=== PATIENT | female | born 1940 | race Hispanic/Latino ===

== ENCOUNTER → 2017-10-01 | Outpatient (CLI) | payer MEDICARE ==
[~2017-10-01] MED LIST: BENZ-17 PO; CALC-190 PO; DIPH25 PO; MULT-1250 PO; PANT40TA25 PO; SIMV40TA59 PO; TRIA10.8 NS
== END | disposition home or self-care (01) ==
LOC: RAH 09:38
PROVIDERS: ATTEND Family Medicine
DX: Z12.31 Encounter for screening mammogram for malignant neoplasm of breast (principal); I25.10 Atherosclerotic heart disease of native coronary artery without angina pectoris; I11.0 Hypertensive heart disease with heart failure; E11.9 Type 2 diabetes mellitus without complications; E78.5 Hyperlipidemia, unspecified; I48.0 Paroxysmal atrial fibrillation; K21.9 Gastro-esophageal reflux disease without esophagitis
CPT/HCPCS: 77067

== ENCOUNTER → 2018-10-19 | Outpatient (CLI) | payer MEDICARE | END | disposition home or self-care (01) | LOC: RAH 10:02 | PROVIDERS: ATTEND Family Medicine | DX: Z12.31 Encounter for screening mammogram for malignant neoplasm of breast (principal) | CPT/HCPCS: 77067 ==

== ENCOUNTER → 2022-12-13 | Outpatient (CLI) | payer MEDICARE ==
[~2022-12-13] MED LIST changes: +DIPH-1242 PO; -DIPH25 PO; -PANT40TA25 PO; +PANT40TA55 PO
== END | disposition home or self-care (01) ==
LOC: RAH 08:39
PROVIDERS: ATTEND Internal Medicine Gastroenterology
DX: K21.9 Gastro-esophageal reflux disease without esophagitis (principal); K44.9 Diaphragmatic hernia without obstruction or gangrene; K21.00 Gastro-esophageal reflux disease with esophagitis, without bleeding
CPT/HCPCS: 74240

== ENCOUNTER → 2025-01-21 | Outpatient (CLI) | payer MEDICARE ==
[~2025-01-21] MED LIST changes: +IOHEXOL-350 75 ML VIAL IV ONE
--- NOTE | 2025-01-21 13:13 | HMCIMG ---
The urinary with the recent and preliminary ultrasound which revealed a Faith CT ABDOMEN/PELVIS W/WO CONTRAS REASON: LOWER ABDOMINAL PAIN COMPARISON: None. FINDINGS: The study was obtained with and without intravenous contrast with 75 cc of Omnipaque 350 was given for intravenous contrast. The study was also obtained with oral contrast. Lung bases are clear. There is coronary calcification suggesting of coronary artery disease.. There are no focal liver lesions. There are normal-appearing kidneys.. Spleen and pancreas appear unremarkable. The gallbladder appears normal as well. Bowel loops appear unremarkable. This includes normal appearance of the appendix There is no evidence of free fluid or intraperitoneal air. There are no focal fluid collections. Aorta and retroperitoneum appear normal as do pelvic soft tissue structures. The anterior abdominal wall is intact. Osseous structures appear unremarkable. The CASEWORK MANAGER structures appears within normal. There is no mass or free fluid within the pelvis. IMPRESSION: 1. No acute process seen at CT of abdomen and pelvis with and without intravenous contrast and oral contrast. CT was performed with one or more following dose reduction techniques: automated exposure control, adjustment of the mA and kv according to patient's size, or use of a iterative reconstruction technique.
== END | disposition home or self-care (01) ==
LOC: RAH 08:42
PROVIDERS: ATTEND Internal Medicine Gastroenterology
DX: R10.30 Lower abdominal pain, unspecified (principal)
CPT/HCPCS: 74178; Q9967

== ENCOUNTER 2025-03-25 15:44 | Emergency (ER) | payer MEDICARE ==
[~2025-03-25] VITALS: Ht 152.4 cm; Wt 60.8 kg
[~2025-03-25 15:44] MED LIST changes: -ACET-66 PO; -IOHEXOL-350 50ML VIAL IV ONE; -IOHEXOL-350 75 ML VIAL IV ONE
--- NOTE | 2025-03-25 16:23 | ERN ---
ED Note History of Present Illness Stated Complaint: FALL Chief Complaint: Mechanical Fall Time Seen by MD: 15:48 Time Seen by Midlevel: 15:50 Dictation: PATIENT IS A 84-YEAR-OLD FEMALE THAT IS HERE WITH COMPLAINTS OF GOING TO RADIOLOGY FOR AN X-RAY THAT WAS ORDERED BY HER DOCTOR. WHEN SHE WAS BEING ESCORTED BACK TO THE WAITING ROOM SHE HAD A SLIP FALL LANDED ON HER LEFT SHOUL LYNETTE AND HER RIGHT KNEE. SHE IS ALSO COMPLAINING OF POSTERIOR CERVICAL PAIN. THERE IS NO MIDLINE SPINE PAIN SHE IS MOVING ALL EXTREMITIES. NEUROVASCULAR CMS INTACT ALL FOUR EXTREMITIES. SHE DID NOT HIT HER HEAD NO BLOOD THINNERS NO TRAUMA ALERT CRITERIA. Allergies: Coded Allergies: No Known Drug Allergies (Verified Allergy, Unknown, 12/11/15) Home Meds Active Scripts Benzonatate (Tessalon Perle) 100 Mg Capsule, 100 MG PO TID, #60 CAP Prov:CRUZ MITCHELL Jr., MD 12/18/15 Reported Medications Diphenhydramine HCl (Benadryl) 25 Mg Cap, 25 MG PO DAILY PRN for ITCHING, CAP 12/11/15 Triamcinolone Acetonide (Nasacort) 10.8 Ml [place], 10.8 ML NS DAILY, SPRAY 12/11/15 Multivits-Min/Iron/FA/Lutein (Centrum Silver Women Tablet) 1 Each Tablet, 1 EACH PO DAILY, TAB 12/11/15 Calcium Carbonate/Vitamin D3 (Calcium + Vitamin D Tablet) 1 Each Tablet, 1 EACH PO BIDMEALS, TAB 12/11/15 Pantoprazole Sodium (Protonix) 40 Mg Ectab, 40 MG PO HS, TAB.EC 12/11/15 Simvastatin (ZOCOR) 40 Mg Tablet, 40 MG PO HS, TAB 12/11/15 Past Medical History Past Medical History: GERD, High Cholesterol Surgical History: None History: Not Applicable RN Note Reviewed/Agreed w/PFSH: Yes Review of System Dictation CONSTITUTIONAL: NEGATIVE EXCEPT FOR HPI HEAD/FACE: NEGATIVE EXCEPT FOR HPI EENT: NEGATIVE EXCEPT FOR HPI RESPIRATORY: NEGATIVE EXCEPT FOR HPI GASTROINTESTINAL/ABDOMINAL: NEGATIVE EXCEPT FOR HPI GENITOURINARY: NEGATIVE EXCEPT FOR HPI MUSCULOSKELETAL: NEGATIVE EXCEPT FOR HPI RIGHT KNEE/POSTERIOR NECK/POSTERIOR LEFT SHOULDER PAIN INTEGUMENTARY: NEGATIVE EXCEPT FOR HPI NEUROLOGICAL/PSYCH: NEGATIVE EXCEPT FOR HPI HEMATOLOGIC/LYMPHATIC: NEGATIVE EXCEPT FOR HPI ALL SYSTEMS NEGATIVE, EXCEPT NOTED ABOVE. 13 POINT REVIEW OF SYSTEMS ASSESSED AND ALL NEGATIVE EXCEPT FOR ABOVE. Initial Vital Sign VS Vital Signs Date Time Temp Pulse Resp B/P (MAP) Pulse Ox O2 Delivery O2 Flow Rate FiO2 03/25/25 15:48 98.6 67 18 158/62 99 Physical Exam Dictation VITAL SIGNS REVIEWED GENERAL APPEARANCE: ALERT, ORIENTED X 3, MILD ACUTE DISTRESS, WELL DEVELOPED, NOURISHED. HEAD AND FACE: NON-TRAUMATIC. EYES: PERRL, PINK CONJUNCTIVAS, EYELID NO TRAUMA, ANTERIOR CHAMBER WITH ARCUS SENILIS. EARS: PINNAS INTACT AND NO SIGNS OF TRAUMA OR ERYTHEMA EAR CANALS CLEAR AND NO D ISCHARGE TM NO ERYTHEMA NOSE: NO DISCHARGE, NO BLEEDING. OROPHARYNX: MOUTH NORMAL, TONGUE PINK, PHARYNX CLEAR,NO ERYTHEMA, TONSILS NO EXUDATES, NO ABSCESSES NOTED, MUCOUS MEMBRANE MOIST NECK: SUPPLE, DIFFUSE POSTERIOR TENDERNESS, NO THYROMEGALY, NO MASSES, NO JVD, NO BRUITS NO MIDLINE SPINE PAIN BREAST:DEFERRED CHEST:NO TENDERNESS, NO CREPITUS, NO PARADOXICAL MOVEMENT, NO RETRACTIONS LUNGS:CLEAR, WELL-VENTILATED, SYMMETRIC, NO RALES, NO WHEEZING, NO RHONCHI, NO STRIDOR, GOOD BREATH SOUNDS BILATERALLY HEART: REGULAR RATE, REGULAR RHYTHM, NO MURMUR, NO GALLOPS VASCULAR: NO PERIPHERAL EDEMA, ABDOMEN: SOFT, POSITIVE BOWEL SOUNDS, NONDISTENDED, NO GUARDING, NONTENDER, NO REBOUND, NO MASSES NO HEPATOMEGALY, NO SPLENOMEGALY, NO NGO'S SIGN, NO HERNIAS. RECTAL: DEFERRED GENITAL: DEFERRED NEUROLOGICAL: NORMAL SPEECH, MOTOR FUNCTION INTACT, SENSORY FUNCTION INTACT MUSCULOSKELETAL: POSTERIOR NECK METER MECHANIC THROUGHOUT. NO MIDLINE SPINE PAIN NO STEP-OFF POSTERIOR LEFT SHOULDER RIGHT ANTERIOR KNEE TENDERNESS. FULL RANGE OF MOTION TO BOTH EXTREMITIES EXTREMITIES: NONTENDER, FULL RANGE OF MOTION SKIN: COLOR PINK, DRY, NO TURGOR, NO RASH, NO LACERATIONS, NO ABRASIONS, NO CONTUSIONS. LYMPHATIC: DEFERRED Results (Laboratory/Radiology) Laboratory/Radiology EXAM: CR left Shoulder, 2 View. CLINICAL HISTORY: LEFT POSTERIOR SHOULDER PAIN STATUS POST FALL COMPARISON: None provided. FINDINGS: BONES: No acute fracture or aggressive appearing osseous lesion. JOINTS: No dislocation. The joint spaces are normal. SOFT TISSUES: The soft tissues are unremarkable. IMPRESSION: No acute abnormality evident on examination of the left shoulder. No acute fracture or dislocation. /[place] EXAM: CR right Knee, 3 View. CLINICAL HISTORY: RIGHT KNEE PAIN STATUS POST FALL COMPARISON: None provided. FINDINGS: BONES: No acute fracture or aggressive appearing osseous lesion. JOINTS: Mild tricompartmental degenerative change SOFT TISSUES: The soft tissues are unremarkable. IMPRESSION: Mild tricompartmental degenerative change /[place] COMPARISON: None provided. FINDINGS: BONES: No acute displaced fracture or aggressive appearing osseous lesion. The bony structures appear demineralized. DISCS/DEGENERATIVE CHANGES: Grade 1 anterio-listhesis of the C4 over the C5 vertebral body. Mild grade 1 anterio-listhesis of the C7 over T1. Degenerative disc disease changes C5-C7. Facet arthrosis. SOFT TISSUES: No prevertebral soft tissue swelling. The visualized lung apices are clear. Bilateral probable carotid calcific atherosclerosis. IMPRESSION: 1. No acute displaced fracture. Osseous demineralization. An acute non-displaced fracture not excluded. Recommend CT Cspine for further evaluation. 2. Grade 1 anterolisthesis of C4 over C5. 3. Degenerative disc disease at C5-C7. 4. Facet arthrosis. 5. Osteopenia. 6. Bilateral probable carotid calcific atherosclerosis. /[place] Labs Reviewed?: Yes ED Course ED Course Orders Procedure Category Date Status Time Cerv Spine 2-3vws RAD 03/25/25 Taken 15:49 Shoulder Comp 2+Vws Lt RAD 03/25/25 Resulted 15:49 Knee 3vws Rt RAD 03/25/25 Resulted 15:49 Acetaminophen 500mg PHA 03/25/25 Complete Tab (Tylenol 500mg T 16:00 Current Medications Medications (Trade) Dose Ordered Sig/Ritesh Route PRN Reason Start Time Stop Time Status Last Admin Dose Admin Acetaminophen (TYLenol 500MG TAB) 1,000 mg ONCE ONCE PO 03/25/25 16:00 03/25/25 16:01 DC Vital Signs Date Time Temp Pulse Resp B/P (MAP) Pulse Ox O2 Delivery O2 Flow Rate FiO2 03/25/25 15:48 98.6 67 18 158/62 99 1700/NEUROVASCULAR CMS INTACT TO ALL EXTREMITIES. PATIENT HAS A ARTHRITIC CHANGES TO THE CERVICAL NECK WITHOUT FRACTURE. RIGHT KNEE AND LEFT SHOULDER NEGATIVE Medical Decision Making MDM MEDICAL DECISION-MAKING BASED ON X-RAYS OF CERVICAL SPINE, LEFT SHOULDER AND RIGHT KNEE. DIAGNOSIS IS RIGHT KNEE CONTUSION, LEFT SHOULDER CONTUSION AND CERVICAL SPRAIN. PATIENT WILL BE DISCHARGED HOME NEUROVASCULAR CMS INTACT TO ALL EXTREMITIES. PAIN CONTROLLED DX & DISP Disposition: Discharge Departure Impression: Primary Impression: Contusion of left shoulder, initial encounter Additional Impressions: Acute cervical myofascial strain, Contusion of right knee, initial encounter, DJD (degenerative joint disease) of cervical spine, Fall Condition: Stable Scripts Acetaminophen (Tylenol) 500 Mg Tab 2 TAB PO Q6HPRN PRN for pain or fever, #60 TAB 0 Refills Prov: VERA AVILA NP 03/25/25 Additional Instructions: FOLLOW-UP WITH PRIMARY CARE PROVIDER IN 1 TO 2 DAYS. TAKE MEDICATIONS DIRECTED HERE IN THE EMERGENCY ROOM. OKAY TO CONTINUE HOME MEDICATIONS UNLESS OTHERWISE DISCUSSED DURING YOUR VISIT IN THE EMERGENCY ROOM TODAY. RETURN TO YOUR NEAREST EMERGENCY ROOM IF SYMPTOMS WORSEN OR IF THERE IS NO IMPROVEMENT. CALL 911 IF YOU NEED IMMEDIATE ASSISTANCE. TAKE TYLENOL OR MOTRIN [id number] NEEDED AND IF NO CONTRAINDICATIONS ARE PRESENT. INCREASE ORAL HYDRATION. A WOUND CULTURE OR URINE CULTURE WAS ORDERED HERE IN THE EMERGENCY ROOM DEPARTMENT PLEASE FOLLOW-UP WITH PRIMARY CARE PROVIDER AND ADVISE THEM TO GET REPEAT PORTS FROM OUR FACILITY. IF YOU HAD ANY CHRISTIANO WRAP/SPLINTS THAT WERE APPLIED HERE, PLEASE DO NOT REMOVE THEM UNTIL YOU SEE YOUR PRIMARY CARE OR SPECIALTY. TAKE TYLENOL TWO TABLETS EVERY 6 HOURS NEEDED FOR PAIN. COOL COMPRESSES TO PAIN THREE TO 4 TIMES A DAY AND SEE YOUR PRIMARY CARE DOCTOR FOR FOLLOW UP. Referrals: CRUZ MITCHELL Jr., MD (PCP) Time of Disposition: 17:06 I have reviewed the case, and I agree with, Diagnosis and Plan VERA AVILA NP Mar 25, 2025 16:23
--- NOTE | 2025-03-25 16:35 | HMCIMG ---
EXAM: CR left Shoulder, 2 View. CLINICAL HISTORY: LEFT POSTERIOR SHOULDER PAIN STATUS POST FALL COMPARISON: None provided. FINDINGS: BONES: No acute fracture or aggressive appearing osseous lesion. JOINTS: No dislocation. The joint spaces are normal. SOFT TISSUES: The soft tissues are unremarkable. IMPRESSION: No acute abnormality evident on examination of the left shoulder. No acute fracture or dislocation. /[place]
--- NOTE | 2025-03-25 16:36 | HMCIMG ---
EXAM: CR right Knee, 3 View. CLINICAL HISTORY: RIGHT KNEE PAIN STATUS POST FALL COMPARISON: None provided. FINDINGS: BONES: No acute fracture or aggressive appearing osseous lesion. JOINTS: Mild tricompartmental degenerative change SOFT TISSUES: The soft tissues are unremarkable. IMPRESSION: Mild tricompartmental degenerative change /[place]
--- NOTE | 2025-03-25 17:00 | HMCIMG ---
EXAM: CR Cervical spine, 3 View. CLINICAL HISTORY: DIFFUSE CERVICAL PAIN STATUS POST FALL COMPARISON: None provided. FINDINGS: BONES: No acute displaced fracture or aggressive appearing osseous lesion. The bony structures appear demineralized. DISCS/DEGENERATIVE CHANGES: Grade 1 anterio-listhesis of the C4 over the C5 vertebral body. Mild grade 1 anterio-listhesis of the C7 over T1. Degenerative disc disease changes C5-C7. Facet arthrosis. SOFT TISSUES: No prevertebral soft tissue swelling. The visualized lung apices are clear. Bilateral probable carotid calcific atherosclerosis. IMPRESSION: 1. No acute displaced fracture. Osseous demineralization. An acute non-displaced fracture not excluded. Recommend CT Cspine for further evaluation. 2. Grade 1 anterolisthesis of C4 over C5. 3. Degenerative disc disease at C5-C7. 4. Facet arthrosis. 5. Osteopenia. 6. Bilateral probable carotid calcific atherosclerosis. /[place]
[2025-03-25] MEDS ORDERED: ACET-66 PO (17:08)
[2025-03-25 17:51] VITALS: BP 137/68; PULSE 62; RESP 18; TEMP 98.6; O2SAT 99
== END 2025-03-25 17:55 | disposition home or self-care (01) ==
LOC: EDH 15:44
DX: S16.1XXA Strain of muscle, fascia and tendon at neck level, initial encounter (principal); S40.012A Contusion of left shoulder, initial encounter; S80.01XA Contusion of right knee, initial encounter; M47.812 Spondylosis without myelopathy or radiculopathy, cervical region; E78.00 Pure hypercholesterolemia, unspecified; W01.0XXA Fall on same level from slipping, tripping and stumbling without subsequent striking against object, initial encounter; Y93.89 Activity, other specified; Y92.89 Other specified places as the place of occurrence of the external cause; Y99.8 Other external cause status
CPT/HCPCS: 71260; 72040; 73030; 73562; 99284; Q9967

== ENCOUNTER → 2025-03-25 | Outpatient (CLI) | payer MEDICARE ==
[~2025-03-25] MED LIST changes: +ACET-66 PO; +IOHEXOL-350 50ML VIAL IV ONE
--- NOTE | 2025-03-26 10:47 | HMCIMG ---
CT CHEST W/CONTRAST REASON: Dyspnea, unspecified COMPARISON: Prior study from 12/13/2015 is available. TECHNIQUE: Multiple sequential axial images of the chest were obtained from the thoracic inlet through the upper pole of the kidneys without intravenous contrast administration. FINDINGS: Heart size is within upper limits of normal. There is coronary calcification suggesting of coronary artery disease. No mediastinal or axillary lymphadenopathy identified. There is no pleural or pericardial effusion. Lungs are clear. There is hyperaeration of lungs suggesting of chronic obstructive pulmonary disease.. There is no consolidation or pneumothorax. Trachea and main bronchi are unremarkable. No chest wall abnormality identified. There is moderate hiatal hernia. The remaining upper abdomen demonstrate no acute process. IMPRESSION: No acute process seen a CT of the chest without intravenous contrast.. Coronary calcifications suggesting coronary artery disease. Small to moderate hiatal hernia. CT was performed with one or more following dose reduction techniques: automated exposure control, adjustment of the mA and kv according to patient's size, or use of a iterative reconstruction technique.
== END | disposition home or self-care (01) ==
LOC: RAH 14:01
PROVIDERS: ATTEND Internal Medicine Cardiovascular Disease
DX: J98.4 Other disorders of lung (principal); R06.00 Dyspnea, unspecified; K44.9 Diaphragmatic hernia without obstruction or gangrene
CPT/HCPCS: 71260; Q9967

== ENCOUNTER 2025-04-27 04:56 | Emergency (ER) | payer MEDICARE ==
[~2025-04-27] VITALS: Ht 157.5 cm; Wt 60.3 kg
[~2025-04-27 04:56] MED LIST changes: +ACET-66 PO
[2025-04-27 05:10] VITALS: TEMP 97.3
[2025-04-27 05:24] LABS: IMMATURE GRANULOCYTE ABSOLUTE 0.05 K/uL (0-1); NUCLEATED RED BLOOD CELLS 0.0 % (0.0-0.19); PLATELET COUNT (AUTO) 156 K/uL (130-400); RED BLOOD CELL COUNT(AUTO) 4.76 MIL/uL (4.00-5.50); RED CELL DISTRIBUTION WIDTH 15.1 % (11.0-15.5); WHITE BLOOD COUNT (AUTO) 8.2 K/uL (4.8-10.8)
[2025-04-27 05:31] LABS: CREATININE 0.7 mg/dL (0.5-1.0); GLOMERULAR FILTR. RATE CALC 85.0 mL/min (>90); GLUCOSE,RANDOM 93.0 mg/dL (70-105); SODIUM SERUM 140.0 mmol/L (136-145); UREA NITROGEN, BLOOD 15.0 mg/dL (7-18)
[2025-04-27] MEDS: LACTATED RINGERS 1000ML 1,000 ML IV ONE (05:31)
[2025-04-27 05:39] LABS: CREATINE KINASE, TOTAL 93.0 U/L (21-232)
[2025-04-27 05:41] LABS: APPEARANCE,URINE CLEAR (CLEAR); GLUCOSE, URINE (UA) NEGATIVE (NEGATIVE); LEUKOCYTE ESTERASE ,URINE 500 Leu/uL (NEGATIVE); NITRATE,URINE NEGATIVE (NEGATIVE); OCCULT BLOOD,URINE +- (TRACE) (NEGATIVE)
--- NOTE | 2025-04-27 05:41 | ERN ---
General Chief Complaint: Mechanical Fall Stated Complaint: C/O SYNCOPAL EPISODE, FALL Time Seen by MD: 05:07 History of Present Illness Initial Comments 84F BIB family from home for fall this morning. Patient reports that she was washing her face in the restroom. She turned around and reportedly lost her balance, falling to the floor. She hit the back of her head on the floor. She denies LOC. No repetitive questioning, no vomiting. Patient reports pain to the back of the head, and neck pain. No other complaints. According to the patient and family, the patient has had multiple falls over the past few months. She reports that she gets episodes where she loses her balance and is unable to catch herself. She had a CT scan of the brain within the past couple of months which was unremarkable. Allergies: Coded Allergies: No Known Drug Allergies (Verified Allergy, Unknown, 12/11/15) Home Meds Active Scripts Acetaminophen (Tylenol) 500 Mg Tab, 2 TAB PO Q6HPRN PRN for pain or fever, #60 TAB 0 Refills Prov:VERA AVILA KEYMODULE ASSEMBLY MACHINE TENDER 03/25/25 Benzonatate (Tessalon Perle) 100 Mg Capsule, 100 MG PO TID, #60 CAP Prov:CRUZ MITCHELL Jr., MD 12/18/15 Reported Medications Diphenhydramine HCl (Benadryl) 25 Mg Cap, 25 MG PO DAILY PRN for ITCHING, CAP 12/11/15 Triamcinolone Acetonide (Nasacort) 10.8 Ml [place], 10.8 ML NS DAILY, SPRAY 12/11/15 Multivits-Min/Iron/FA/Lutein (Centrum Silver Women Tablet) 1 Each Tablet, 1 EACH PO DAILY, TAB 12/11/15 Calcium Carbonate/Vitamin D3 (Calcium + Vitamin D Tablet) 1 Each Tablet, 1 EACH PO BIDMEALS, TAB 12/11/15 Pantoprazole Sodium (Protonix) 40 Mg Ectab, 40 MG PO HS, TAB.EC 12/11/15 Simvastatin (ZOCOR) 40 Mg Tablet, 40 MG PO HS, TAB 12/11/15 Past Medical History Past Medical History: Unknown Past Surgical History: Unknown Female( History) History: Not Applicable ROS Dictation CONSTITUTIONAL: No chills, no fever, no weakness, no diaphoresis, no malaise. HEAD/FACE: No signs of trauma. EENT: No eye pain, no blurred vision, no tearing, no double vision, no ear pain, no ear discharge, no nose pain, no nasal congestion, no throat pain, no throat swelling, no mouth pain. RESPIRATORY: No cough, no orthopnea, no SOB, no stridor, no wheezing. CARDIOVASCULAR: No chest pain, no edema, no palpitations, no syncope. GASTROINTESTINAL/ABDOMINAL: No abdominal pain, no constipation, no diarrhea, no nausea, no vomiting. GENITOURINARY: No abnormal discharge, no dysuria, no frequent urination, no hematuria. No complaints of pain in the genitals. MUSCULOSKELETAL: Has been INTEGUMENTARY: No change in color, no change in hair/nails, no dryness, no lesion, no lumps, no rash. NEUROLOGICAL/PSYCH: No anxiety, not depressed, no emotional problem, no headache, no numbness, no pre-existing deficit, no history of seizures, no tremors, no weakness. HEMATOLOGIC/LYMPHATIC: Not anemic, no history of blood clots, no apparent bleeding, no bruising, glands not swollen. All Systems Negative, Except as Noted. Physical Exam Physical Exam Dictation VITAL SIGNS: Reviewed. GENERAL APPEARANCE: Alert, oriented x3, no acute distress HEAD AND FACE: Hematoma to the occiput. EYES: PERRL, pink conjunctivas, eyelid no trauma, anterior chamber clear. EARS: Pinnas intact and no signs of trauma or erythema. Ear canals clear and no discharge. TMs no erythema. NOSE: No discharge, no bleeding. OROPHARYNX: Mouth normal, teeth no caries, tongue pink. Pharynx clear, no erythema. Tonsils no exudates, no abscesses noted. Mucous membrane moist. NECK: Supple, non-tender, no thyromegaly, no masses, no JVD, no bruits. BREAST: Deferred. CHEST: No tenderness, no crepitus, no paradoxical movement, no retractions. LUNGS: Clear, well-ventilated, symmetric, no rales, no wheezing, no rhonchi, no stridor, good breath sounds bilaterally. HEART: Regular rate, regular rhythm, no murmur, no gallops. VASCULAR: No peripheral edema. ABDOMEN: Soft, positive bowel sounds, nondistended, no guarding, nontender, no rebound, no masses no hepatomegaly, no splenomegaly, no Lovett's sign, no hernias. RECTAL: Deferred. GENITAL: Deferred. NEUROLOGICAL: Normal speech, gross motor function intact, gross sensory function intact. MUSCULOSKELETAL: Neck nontender, full range of motion, back nontender, full range of motion. EXTREMITIES: Nontender, full range of motion. SKIN: Color pink, dry, no turgor, no rash, no lacerations, no abrasions, no contusions. LYMPHATICS: Deferred. Results Laboratory and Microbiology Lab and Micro Result Laboratory Tests Test 04/27/25 05:05 04/27/25 05:24 White Blood Count 8.2 K/uL (4.8-10.8) Red Blood Count 4.76 MIL/uL (4.00-5.50) Hemoglobin 13.1 g/dL (12.0-16.0) Hematocrit 40.7 % (36-48) Mean Corpuscular Volume 85.5 fL (79-99) Mean Corpuscular Hemoglobin 27.5 pg (27.0-33.0) Mean Corpuscular Hemoglobin Concent 32.2 g/dL (32.0-36.0) Red Cell Distribution Width 15.1 % (11.0-15.5) Platelet Count 156 K/uL (130-400) Mean Platelet Volume 10.5 fL (7.5-10.5) Immature Granulocyte % (Auto) 0.6 % (0-1) Neutrophils (%) (Auto) 75.3 % (40.0-77.0) Lymphocytes (%) (Auto) 13.5 % (21.0-51.0) L Monocytes (%) (Auto) 7.5 % (3.0-13.0) Eosinophils (%) (Auto) 2.6 % (0.0-8.0) Basophils (%) (Auto) 0.5 % (0.0-5.0) Neutrophils # (Auto) 6.2 K/uL (1.8-7.7) Lymphocytes # (Auto) 1.1 K/uL (1.0-4.8) Monocytes # (Auto) 0.6 K/uL (0.1-1.0) Eosinophils # (Auto) 0.21 K/uL (0.00-0.70) Basophils # (Auto) 0.04 K/uL (0.00-0.20) Absolute Immature Granulocyte (auto 0.05 K/uL (0-1) Nucleated Red Blood Cells 0.0 % (0.0-0.19) Sodium Level 140 mmol/L (136-145) Potassium Level 4.1 mmol/L (3.5-5.1) Chloride Level 103 mmol/L (101-111) Carbon Dioxide Level 27 mmol/L (21-32) Blood Urea Nitrogen 15 mg/dL (7-18) Creatinine 0.7 mg/dL (0.5-1.0) Glomerular Filtration Rate Calc 85 mL/min (>90) Random Glucose 93 mg/dL (70-105) Total Calcium 8.6 mg/dL (8.5-10.1) Magnesium Level 2.10 mg/dL (1.80-2.40) Total Creatine Kinase 93 U/L (21-232) Troponin I High Sensitivity 12.8 ng/L (4-50) Urine Color LIGHT-YELLOW (YELLOW) Urine Appearance CLEAR (CLEAR) Urine pH 5.5 (5.0-8.0) Urine Specific [place] 1.018 (1.001-1.031) Urine Protein NEGATIVE mg/dL (NEGATIVE) Urine Glucose (UA) NEGATIVE mg/dL (NEGATIVE) Urine Ketones 20 mg/dL (NEGATIVE) H Urine Occult Blood +- (TRACE) (NEGATIVE) H Urine Nitrate NEGATIVE (NEGATIVE) Urine Bilirubin NEGATIVE mg/dL (NEGATIVE) Urine Urobilinogen 0.2 mg/dL (0.2-1.0) Urine Leukocyte Esterase 500 [place]/uL (NEGATIVE) H Urine RBC 2-5 /HPF (0-1) H Urine WBC 26-50 /HPF (0-1) H Urine Squamous Epithelial Cells RARE /HPF (0-2) Urine Bacteria RARE /HPF (None Seen) MDM CC: fall, head injury Historian: patient Comorbidities: advanced age Limitations: none Ddx: head injury, tumore, bleed, other VSS Clinical exam shows hematoma to back of head, otherwise unremarkable. No FNDs, national facilities manager intact. EKG WNL per my read Labs WNL, no luekocytosis, no anemia, BMP WNL, CK, troponin WNL. UA shows occult blood, 500LE, WBCs. CT head, CT cervical spine shows no acute fracture or bleed per my read. CXR no fracture, PTX, focal infiltrate per my read. Pelvic XR no acute fracture per my read. Patient has UTI, no signs of sirs/sepsis/pyelo. No significnat trauma. No signs of stroke. Only concern is frequent falls. I discussed admission with patient, but she prefers to go home. She's ambulatory, GCS 15, no focal neuro deficits. Safe for DC. Will give prescription for cefpodoxime. ED Course Orders Procedure Category Date Status Time Ct Head/Brain W/O CT 04/27/25 Resulted Contrast 05:10 Ct Cervical Spine W/O CT 04/27/25 Resulted Contrast 05:10 Chest 1vw RAD 04/27/25 Resulted 05:10 Pelvis 1-2vws RAD 04/27/25 Resulted 05:10 Cardiac Panel LAB 04/27/25 Complete 05:10 Cbc With Differential LAB 04/27/25 Complete 05:10 Basic Metabolic Panel LAB 04/27/25 Complete 05:10 Magnesium LAB 04/27/25 Complete 05:10 Urinalysis Profile LAB 04/27/25 Complete 05:10 Lactated Ringers PHA 04/27/25 Complete 1000ml (Lactated 05:30 12 Lead Ekg Tracing- EKG 04/27/25 Complete Technical 05:10 Culture Urine GIOVANNY 04/27/25 In Process 05:24 Ceftriaxone 1g Vial PHA 04/27/25 Complete (Rocephine 1g Inj) 06:30 Current Medications Medications (Trade) Dose Ordered Sig/Ritesh Route PRN Reason Start Time Stop Time Status Last Admin Dose Admin Ceftriaxone Sodium (ROCEphine 1G INJ) 1 gm ONCE ONCE IVPB 04/27/25 06:30 04/27/25 06:47 DC 04/27/25 06:49 Lactated Ringer's 1,000 ml @ 0 mls/hr ONCE ONCE IV 04/27/25 05:30 04/27/25 05:31 DC 04/27/25 05:31 Vital Signs Date Time Temp Pulse Resp B/P (MAP) Pulse Ox O2 Delivery O2 Flow Rate FiO2 04/27/25 06:39 67 16 186/61 98 Room Air* 0 21 04/27/25 05:45 66 16 184/61 97 Room Air* 0 21 04/27/25 05:10 97.3 66 20 182/61 98 Room Air* 0 21 04/27/25 05:02 97.9 69 20 184/70 99 Room Air DX & DISP Disposition: Discharge Departure Impression: Primary Impression: Scalp hematoma Additional Impressions: UTI (urinary tract infection), Minor head injury Condition: Stable Additional Instructions: There are no significant injuries here today. The CT scan of the head and spine show chronic changes, but no signs of acute injury. There is possibly a small hygroma on the CT scan of the brain. This is an incidental finding and not likely related to your symptoms. I recommend an outpatient MRI of your brain. Discuss this with your primary doctor. The x-rays are unremarkable. Your labwork is unremarkable. The urinalysis shows some signs of infection, which may cause generalized weakness. You received a dose of antibiotics here in the ED, and I've prescribed a short course of antibiotics. Take as prescribed. Please follow up with your primary doctor regarding the frequent falls. Consider a walker or cane as needed. Return to the ED as needed. Referrals: CRUZ MITCHELL Jr., MD (PCP) KUNAL BEE DO Apr 27, 2025 05:41
[2025-04-27 05:46] LABS: ADD UA MICROSCOPIC YES
[2025-04-27 05:47] LABS: SQUAMOUS EPITHELIAL CELL,UR RARE /HPF (0-2)
--- NOTE | 2025-04-27 06:31 | EKG ---
[facility] Test Date: 2025-04-27 Test Time: 05:05:43 Pat Name: ARI OROSCO Department: ED Room: Gender: F Air Quality Specialist: [id number] : [id number] Requested By: KUNAL BEE Order Number: [id number] Reading MD: Jason Anthony Measurements Intervals Rudy Rate: 64 P: 55 WY: 154 QRS: -20 QRSD: 95 T: 27 QT: 430 QTc: 443 Interpretive Statements Sinus rhythm Probable left atrial enlargement Borderline T abnormalities, diffuse leads Compared to ECG 12/15/2015 05:13:38 Atrial premature complex(es) no longer present Possible ischemia no longer present T-wave abnormality still present Electronically Signed On 04-28-2025 17:44:53 CDT by Jason Anthony Please click the below link to view image of tracing.
--- NOTE | 2025-04-27 06:38 | HMCIMG ---
EXAM: CR Chest, 1 View. CLINICAL HISTORY: injury COMPARISON: 12/13/15 16:32 EDT CR - CHEST 1VW FINDINGS: LUNGS: The lungs show no infiltrate or other acute finding. PLEURAL SPACES: No evidence of pleural effusion or pneumothorax. MEDIASTINUM: Cardiac size and mediastinal contours within normal limits. BONES: No aggressive appearing osseous lesion seen. No obvious displaced fractures on the single view provided. IMPRESSION: No acute cardiopulmonary pathology is evident. In the setting of trauma, A subtle bone abnormality or fracture may not be readily apparent on x-rays, thus clinical correlation and further imaging including follow up CT, MRI, or follow up x-rays are advised as needed. /[place]
[2025-04-27 06:39] VITALS: BP 186/61; PULSE 67; RESP 16; O2SAT 98
--- NOTE | 2025-04-27 06:42 | HMCIMG ---
EXAM: CR Pelvis, single view. CLINICAL HISTORY: Pain. COMPARISON: None provided. FINDINGS: Mild degenerative changes in the bilateral medial hip joint and right superolateral hip joint. Degenerative facet arthropathy at the L5-S1 level and degenerative reduction in disc space at the L3-L4 level. No acute fracture or dislocation. A 2.8 cm well-defined sclerotic lesion in the proximal femoral metaphysis. Probable bone island. The possibility of metastasis cannot be completely excluded. The soft tissues are unremarkable. Calcific densities in the pelvis are probably phleboliths. IMPRESSION: No acute osseous abnormality.Mild degenerative changes in the bilateral medial hip joint and right superolateral hip joint. Degenerative facet arthropathy at the L5-S1 level and degenerative reduction in disc space at the L3-L4 level. Sclerotic focus in the proximal metaphysis of the right femur is probably a bone island. The possibility of metastasis cannot be completely excluded. /[place]
--- NOTE | 2025-04-27 06:59 | HMCIMG ---
EXAM: CT Cervical Spine Without IV contrast. CLINICAL HISTORY: fall, head injury. TECHNIQUE: Axial computed tomography images of the cervical spine without intravenous contrast. Sagittal and coronal reformatted images were generated. COMPARISON: None provided. FINDINGS: ALIGNMENT: Straightening of the cervical spine. DEGENERATIVE CHANGES: Degenerative changes in the form of multilevel marginal osteophytes, facet arthropathy, and reduced disc height. Grade I anterolisthesis of C3 over C4. Reduced intervertebral disc height with posterior disc osteophyte complexes at the C4-C5 to C6-C7 level, indenting the anterior thecal sac with mild stenosis of the right neural foramen at the C6-C7 level. SOFT TISSUES: The prevertebral soft tissues are within normal limits. BONES: No acute fracture or aggressive appearing osseous lesion. IMPRESSION: No acute cervical spine abnormality. Mild degenerative changes at C1-C2. Degenerative changes in the form of multilevel marginal osteophytes, facet arthropathy, and reduced disc height. Grade I anterolisthesis of C3 over C4. Reduced intervertebral disc height with posterior disc osteophyte complexes at C4-C5 to C6-C7 levels, indenting the anterior thecal sac with mild stenosis of the right neural foramen at the C6-C7 level. /[place]
--- NOTE | 2025-04-27 07:00 | HMCIMG ---
EXAM: CT Head Without IV contrast. CLINICAL HISTORY: fall, head injury TECHNIQUE: Axial computed tomography images of the head/brain without intravenous contrast. COMPARISON: None provided. 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 No evidence of any acute intra-axial or extra-axial hemorrhage in the present study. 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 Chronic lacunar infarct in the right basal ganglia. No mass lesion. No CT evidence for acute territorial infarct. No midline shift .VENTRICLES: No hydrocephalus. ORBITS: The orbits are unremarkable. SINUSES AND MASTOIDS: The paranasal sinuses and mastoid air cells are clear. BONES: Hyperostosis frontalis interna.No fracture. SOFT TISSUES: Unremarkable. IMPRESSION: No acute intracranial abnormality. 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 Chronic lacunar infarct in the right basal ganglia. /[place]
--- NOTE | 2025-04-27 07:20 | NUR ---
PT STATES SHE IS FEELING BETTER NO PAIN NOW, PT GIVEN INSTRUCTIONS FOR HOME, IV REMOVED CATHETER INTACT, PT DRESSED WITH ASSISTANCE, PT PLACED IN W/C HELPED INTO CAR BY ROSALIO ADKINS AND ISADORA MONREAL INTO CAR. DRIVEN HOME BY SON.
--- NOTE | 2025-04-27 09:14 | NUR ---
0910 CALLED IN RX TO [facility] FOR MACROBID, CALLED SPOUSE NO ANSWER, CALLED PT HOME NUMBER NO ANSWER TO NOTIFY OF RX FOR [facility]IST.
== END 2025-04-27 07:50 | disposition home or self-care (01) ==
LOC: EDH 04:56
DX: S00.03XA Contusion of scalp, initial encounter (principal); N39.0 Urinary tract infection, site not specified; R55 Syncope and collapse; Z86.73 Personal history of transient ischemic attack (TIA), and cerebral infarction without residual deficits; Z91.81 History of falling; W18.39XA Other fall on same level, initial encounter; Y93.89 Activity, other specified; Y92.091 Bathroom in other non-institutional residence as the place of occurrence of the external cause; Y99.8 Other external cause status
CPT/HCPCS: 99285; 70450; 96374; 71045; 96361; 82550; 83735; 84484; 80048; 85025; 87086; 81001; 36415; 72170; 72125; 93005; J7120; J0696